=== PATIENT | female | born 1980 | race Caucasian/White ===

== ENCOUNTER → 2020-08-08 13:34 | Outpatient (CLI) | payer OTHER, SELFPAY ==
--- NOTE | ~2020-08-08 | MM_ITS ---
EXAMINATION: MM screening german BI w lynne HISTORY: Screening mammogram TECHNIQUE: Craniocaudal and mediolateral oblique 3-D tomosynthesis images were obtained and synthetic 2-D images were generated. CAD analysis was submitted and interpreted. COMPARISON: No prior mammogram is available for comparison at this institution. BREAST PARENCHYMAL COMPOSITION: There are scattered areas of fibroglandular density. FINDINGS: There is a 6 mm circumscribed opacity in the upper outer left breast. Diagnostic left mammo gram and left breast ultrasound examination are recommended. There is otherwise no evidence of suspicious mass, calcification, or architectural distortion to sugg est malignancy in either breast. There has been no suspicious interval change. IMPRESSION: 1. 6 mm circumscribed mass in upper outer left breast 2. Diagnostic left mammogram and targeted left breast ultrasound examination are recommended. BI-RADS Category 0: Incomplete: Needs additional imaging evaluation. Reviewed, dictated and finalized at location A. SELLER IMPRESSION: 1. 6 mm circumscribed mass in upper outer left breast 2. Diagnostic left mammogram and targeted left breast ultrasound examination ar e recommended. BI-RADS Category 0: Incomplete: Needs additional imaging evaluation.
== END ==
PROVIDERS: Visit Provider Obstetrics & Gynecology
DX: Z12.31 Encounter for screening mammogram for malignant neoplasm of breast (principal); R92.8 Other abnormal and inconclusive findings on diagnostic imaging of breast
CPT/HCPCS: 77063; 77067

== ENCOUNTER 2020-09-22 08:46 | Outpatient (CLI) | payer OTHER, SELFPAY ==
--- NOTE | ~2020-09-22 | MMUS_ITS ---
EXAMINATION: MM diagnostic german LT w lynne, US breast LT limited HISTORY: Left breast mass on screening mammogram TECHNIQUE: Additional 3-D tomosynthesis images of the left breast were performed and synthetic 2-D im ages were generated. CAD analysis was submitted and interpreted. High resolution limited left breast ultrasound was performed. COMPARISON: 08/08/2020 BREAST PARENCHYMAL COMPOSITION: There are scattered areas of fibroglandular density. FINDINGS: MAMMOGRAPHIC FINDINGS: There is a 7 mm oval, obscured, equal density mass in the posterior third of the upper outer quadrant of the breast at the 1:00 location 9 cm from the nipple. No suspicious calcification or architectura l distortion are identified. ULTRASOUND: There is a 10 mm x 3 mm mass at the 1:00 location 8 cm from the nipple with sonographic features cons istent with a lymph node. No suspicious cystic or solid mass is identified. IMPRESSION: 1. No mammographic or sonographic evidence of malignancy. Intramammary lymph node corresponding to t he abnormality of concern on screening mammogram. 2. Recommend routine screening mammography in one year. BI-RADS Category 2: Benign finding(s). Reviewed, dictated and finalized at location A. IMPRESSION: 1. No mammographic or sonographic evidence of malignancy. Intramammary lymph n ode corresponding to the abnormality of concern on screening mammogram. 2. Recommend routine screening mammography in one year. BI-RADS Category 2: Benign finding(s).
== END 2020-09-22 08:47 ==
PROVIDERS: Visit Provider Obstetrics & Gynecology
DX: R92.8 Other abnormal and inconclusive findings on diagnostic imaging of breast (principal)
CPT/HCPCS: 76642; 77061; 77065; G0279

== ENCOUNTER 2021-09-29 12:07 | Outpatient (CLI) | payer OTHER, SELFPAY ==
--- NOTE | ~2021-09-29 | MM_ITS ---
EXAMINATION: MM screening german BI w lynne HISTORY: Screening TECHNIQUE: Craniocaudal and mediolateral oblique 3-D tomosynthesis images were obtained and synthetic 2-D images were generated. CAD analysis was submitted and interpreted. COMPARISON: 08/08/2020 BREAST PARENCHYMAL COMPOSITION: The breasts are heterogeneously dense, which may obscure small masses . FINDINGS: There is no evidence of suspicious mass, calcification, or architectural distortion to sugg est malignancy in either breast. There has been no suspicious interval change. IMPRESSION: 1. No mammographic evidence of malignancy. 2. Recommend routine screening mammography in one year. BI-RADS Category 1: Negative Reviewed, dictated and finalized at location A.
--- NOTE | ~2021-09-29 | US_ITS ---
EXAMINATION: US pelvic complete EXAM DATE: 09/29/2021 12:31 INDICATION: Dysmenorrhea, Irregular menstruation. TECHNIQUE: Pelvic transabdominal sonogram was performed. There are multiple grayscale and Doppler im ages available for interpretation. Comparison is made to prior examination from 07/24/2008. FINDINGS: Uterus measures 8.6 x 4.9 x 6.6 cm, possible couple of small fibroids up to 2 cm. Endometr ial stripe measures 6 mm, within normal limits. There is no free pelvic fluid. Right adnexa: The ovary measures 3.3 x 2.1 x 2.5 cm and is morphologically normal. Ovarian vascular f low confirmed. Left adnexa: The ovary measures 2.1 x 1.4 x 2.4 cm and is morphologically normal. Ovarian vascular fl ow confirmed. IMPRESSION: 1. Possible small fibroids. Reviewed, dictated and finalized at location A. IMPRESSION: 1. Possible small fibroids.
== END 2021-09-29 12:08 ==
PROVIDERS: Visit Provider Obstetrics & Gynecology Gynecology
DX: Z12.31 Encounter for screening mammogram for malignant neoplasm of breast (principal); N94.6 Dysmenorrhea, unspecified; N92.0 Excessive and frequent menstruation with regular cycle
CPT/HCPCS: 76856; 77063; 77067

== ENCOUNTER 2022-01-08 13:42 | Outpatient (CLI) | payer OTHER, SELFPAY ==
[2022-01-08 14:33] LABS: Hemoglobin 10.7 g/dL (12.0-15.0)
[2022-01-08 14:43] LABS: Anion Gap 7 mmol/L (8-16); Blood Urea Nitrogen 20 mg/dL (7-17); Carbon Dioxide 28 mmol/L (22-30); Chloride 103 mmol/L (98-107); Estimated Glomerular Filt Rate 54; Glucose 96 mg/dL (65-110); Potassium 3.4 mmol/L (3.4-5.0); Sodium 138 mmol/L (137-145)
== END 2022-01-08 13:43 | disposition home or self-care (01) ==
PROVIDERS: Anesthesiology; PCP Family Medicine; Visit Provider Obstetrics & Gynecology Gynecology
DX: Z01.818 Encounter for other preprocedural examination (principal); D64.9 Anemia, unspecified; Z79.899 Other long term (current) drug therapy
CPT/HCPCS: 36415; 80048; 85014; 85018

== ENCOUNTER 2022-01-11 01:14 | Day surgery (SDC) | payer OTHER, SELFPAY ==
[2022-01-05 13:34] VITALS: BMI 31.1
--- NOTE | 2022-01-05 14:40 | PC.NURSE ---
Report to the Outpatient Waiting Room, entrance under the green pavilion located off [facility], at 0600 on 01-11-22. OR Time: 0730. - You and your visitor will be asked a series of questions to screen for COVID 19 for your protection. - Only one visitor is allowed at this time. - The patient visitor is requested to leave or wait in car when not with patient. - A mask is required within the hospital. Patients may have clear liquids (water, carbonated beverages, clear teas, apple juice) until 3 hours prior to surgery with a maximum of 20 ounces. 0430 - No food from midnight until time of surgery - Infants may have breast milk until 4 hours before surgery, infant formula 6 hours prior to surgery. - Children will be allowed to drink immediately following surgery. If applicable, please bring a bottle or sippy cup to assist with drinking. Juice, water, soda, and popsicles are readily available. For infants on formula, please bring formula the day of surgery. Pacifiers are allowed. Take the following medications with a SIP of water the morning of surgery: fluoxetine, clonazepam if needed Medications to discontinue per physician: N/A Please no make-up, nail zambian, hairspray, perfume, deodorant, or body powder the day of surgery. No jewelry (including any body piercings) or valuables the day of surgery, leave them at home. Please take a shower or bath the night before, or the morning of, surgery with an antibacterial soap. Wear comfortable, loose fitting clothing. Children are encouraged to wear pajamas. - Jewelry must be removed prior to entering the operating room. Rings and piercings that are not removed may be cut off. - The hospital will not accept responsibility for valuables. - Please leave all valuables, including medications, at home the day of surgery. If you are going home after surgery, a licensed truck driver salesperson must drive you home. - NO public transportation without another adult. - We recommend that an adult stay with you for 24 hours following discharge. - We also recommend that you do not drive, make important decision, drink alcoholic beverages, or take any drugs that were not prescribed by your health care provider for at least 24 hours after your discharge time. For Pediatric surgeries, we recommend two adults accompany the child home (only one inside the building at this time). Follow any additional instructions given to you from your surgeon. If you or anyone in your household have experienced Covid symptoms in the past week, please notify your surgeon or the nurse liaison at the phone number below for possible testing. Telephone instructions given to Kelly Adams and asked if any additional questions and then verbalized understanding. Patient advised to call surgeon office or pre surgery nurse liaison [phone] if any additional questions.
[2022-01-11] MEDS: ACETAMINOPHEN 500 MG TABLET 1000 MG PO (06:45)
[2022-01-11] MEDS: LACTATED RINGERS 1,000 ML 30 ML IV CONT (07:00)
--- NOTE | 2022-01-11 07:01 | WPDANESEPPF ---
Anes - Initial Pre Proc Eval Procedure: Operation Date: 01/11/22 07:30 Proposed Procedures p Hysteroscopy Dilation and Curettage with Anaid Endometrial Ablation - Starr Angeles MD Date/Time: 01/11/22 07:01 Surgeon: Starr Angeles MD Pre Op Diagnosis: menorrhagia, dysmenorrhea Patient Data Age: 41 Gender: F Height: 1.57 m Weight: 77.11 kg Allergies Allergy/AdvReac Type Severity Reaction Status Date / Time No Known Allergies Allergy Verified 01/05/22 13:35 Home Medications Medication Instructions Recorded Confirmed Type atenolol 50 mg-chlorthalidone 25 1 tablet PO DAILY 01/05/22 01/05/22 History mg tablet clonazepam 0.5 mg tablet 1 tablet PO BID PRN Anxiety 01/05/22 01/05/22 History fluoxetine 10 mg capsule 30 mg PO DAILY 01/05/22 01/05/22 History Patient hx anesthesia problems: none Family hx anesthesia problems: none Results Review: All pre-operative results and documents have been reviewed as part of the pre-operative evaluation. [facility] Past Medical History Medical History Anxiety Depression Hyperlipidemia Hypertension Social History Social History Smoking status: Never smoker Second hand tobacco smoke exposure: No Alcohol intake: current Alcohol use details: occasionally Substance use: current Substance use type: marijuana Living arrangements: with family Spiritual care concerns: No Anes - Eval Final PreProcedure Day of Procedure 01/11/22 07:01 Patient weight: obese Heart: regular rate and rhythm Lungs: clear to auscultation Airway: Mallampati scale class II Neurological: alert and oriented Last oral intake: >/= 8 hours ASA classification: III Emergent: no Anesthetic plan: proceed Anesthesia type and monitoring: general GIVS and standard monitoring Results Review: All pre-operative results and documents have been reviewed as part of the pre-operative evaluation. Informed Consent: The patient's anesthetic plan and its attendant risks and benefits were discussed with the patient/family/POA. Questions were solicited and answers provided to the satisfaction of the patient/family/POA.
--- NOTE | 2022-01-11 07:13 | PM.HPGS ---
History of Present Illness History of Present Illness Consent: Risks, benefits, and alternatives have been discussed and questions answered. Patient agrees to proceed with procedure. Chief complaint: menorrhagia, dysmenorrhea Narrative: Kelly Adams is a 41 year old female with dysmenorrhea and heavier cycles. Patient had her IUD removed and cycle since that time have been increasingly crampy. She is going through approximately a pad every 2 to 3 hours. Options for treatment were reviewed and she has chosen to proceed with endometrial ablation. As the bleeding is within normal limits, D&C hysteroscope we performed the same time. Risks of infection, bleeding, perforation, and possible pathology were reviewed. Success of ablation for dysmenorrhea was reviewed. Patient voices understanding and agrees to proceed. Review of Systems Review of Systems: not repeated day of surgery; patient states no changes in status PMFSH Past Medical History Medical History (Updated 01/11/22 @ 07:18 by Starr Angeles MD) Anxiety Cervical dysplasia Cryotherapy in the with normal Pap smear since then Depression Hyperlipidemia Hypertension (normal spontaneous vaginal delivery) X3 Surgical History Surgical History (Updated 01/11/22 @ 07:16 by Starr Angeles MD) H/O tubal ligation H/O umbilical hernia repair History of appendectomy Hx laparoscopic cholecystectomy Social History Social History Smoking status: Never smoker Second hand tobacco smoke exposure: No Alcohol intake: current Alcohol use details: occasionally Substance use: current Substance use type: marijuana Living arrangements: with family Spiritual care concerns: No Meds Home Medications and Allergies Home Medications Medication Instructions Recorded Confirmed Type atenolol 50 mg-chlorthalidone 25 1 tablet PO DAILY 01/05/22 01/05/22 History mg tablet clonazepam 0.5 mg tablet 1 tablet PO BID PRN Anxiety 01/05/22 01/05/22 History fluoxetine 10 mg capsule 30 mg PO DAILY 01/05/22 01/05/22 History Allergies Allergy/AdvReac Type Severity Reaction Status Date / Time No Known Allergies Allergy Verified 01/05/22 13:35 Exam Const: General: healthy appearing and alert Orientation/consciousness: patient oriented x3 GI: GI Palp: Yes Soft to palpation, No Tenderness to palpation present (GI) and No Palpable mass present : External Female Exam: normal external appearance Speculum Exam - Vagina: normal appearance of the vagina and normal vaginal discharge Speculum Exam - Cervix: normal appearance of the cervix Bimanual exam- vagina & uterus: uterine size normal and consistency normal Bimanual Exam- Adnexa, other: normal adnexae and No adnexal tenderness Neuro: General: patient oriented x3 Assessment and Plan Assessment and plan (1) Dysmenorrhea: Code(s): N94.6 - Dysmenorrhea, unspecified Status: Acute Assessment and Plan: Plan is to proceed with D&C hysteroscopy and Anaid endometrial ablation.
--- NOTE | 2022-01-11 07:19 | WPDHPUPDATE1 ---
History and Physical Update Update Date/Time: 01/11/22 07:19 History and Physical has been reviewed, including an updated exam of the patient. There are NO changes in the patient's condition. Risks, benefits, and alternatives have been discussed and questions answered. Patient agrees to proceed with procedure.
[2022-01-11 07:23] VITALS: BP 160/97; PULSE 87; RESP 18; TEMP 36.1; O2SAT 99
[2022-01-11] MEDS: LIDOCAINE HCL 1% PF 30 ML VIAL INFILTRATE (07:37)
--- NOTE | 2022-01-11 07:50 | W.PM.PROC2 ---
Procedure Note - Detailed Date of Procedure 01/11/22 Pre-op Diagnosis menorrhagia, dysmenorrhea Post-op Diagnosis Same Procedure Performed D&C hysteroscopy with Anaid endometrial ablation Surgeon Starr Angeles MD Anesthesia MAC and Local Findings Uterus sounds to 11cm. Endometrium appears grossly secretory. Description of Procedure The patient is taken to the operating room and placed under anesthesia in the dorsal lithotomy position. She was prepped and draped in usual sterile fashion. [place] speculum was placed in the vagina and the cervix grasped on the anterior lip with a tenaculum. The cervix is injected in each quadrant with 1% lidocaine. The uterus is sounded to 11cm. Cervix is serially dilated to an 8 Hegar. The diagnostic hysteroscope was placed with the above-stated findings. The hysteroscope was removed. The endometrium was curetted with a sharp curette until a good uterine cry was noted in all areas. The Anaid device is opened and placed set at 6.5cm. The cavity assessment passed on the 1st attempt and treatment cycle lasted the full 2minutes. The Anaid device is removed and the hysteroscope replaced with good ablation effect noted. All instruments are removed. Patient is awakened from anesthesia and taken to recovery in stable condition. Sponge, needle, and instrument counts are correct per the OR staff. Estimated Blood Loss 5 Drains No Packing No Pathology Yes (Endometrial curettings) Complications No immediate complications Condition Stable Disposition PACU
[2022-01-11 07:51] VITALS: BP 130/79; PULSE 75; RESP 12; O2SAT 96
[2022-01-11 08:20] VITALS: BP 134/90; PULSE 65; RESP 12; O2SAT 99
[2022-01-11] MEDS: oxyCODONE HCL (*CRX) 5 MG TAB IR PO (08:40)
[2022-01-11 08:50] VITALS: BP 150/90; PULSE 66; RESP 12
[2022-01-11 09:20] VITALS: BP 127/76; PULSE 65; RESP 12
== END 2022-01-11 09:40 | disposition home or self-care (01) ==
PROVIDERS: PCP Family Medicine; Visit Provider Obstetrics & Gynecology Gynecology
PROC: 0U5B8ZZ Destruction of Endometrium, Via Natural or Artificial Opening Endoscopic (ICD-10-PCS; CPT 58563; principal; 2022-01-11 07:30)
DX: N92.0 Excessive and frequent menstruation with regular cycle (principal); N94.6 Dysmenorrhea, unspecified; I10 Essential (primary) hypertension; E78.5 Hyperlipidemia, unspecified; F41.9 Anxiety disorder, unspecified; F32.A Depression, unspecified; F12.90 Cannabis use, unspecified, uncomplicated; E66.9 Obesity, unspecified; Z68.33 Body mass index [BMI] 33.0-33.9, adult
CPT/HCPCS: 58563; 36415; 80048; 85014; 85018; 88305; A9270; J2250; J2704; J3010; J7030; J7120